=== PATIENT | male | born 1975 | race Caucasian/White ===

== ENCOUNTER 2022-10-08 11:21 | Emergency (ER) | payer OTHER ==
[2022-10-08 11:31] VITALS: BP 174/86; PULSE 76; RESP 18; TEMP 97.8; BMI 25.1
[2022-10-08] MEDS ORDERED: KETOROLAC TROMETHAMINE 30 MG/1 ML VIAL IM ONE (12:55)
[2022-10-08] MEDS ORDERED: ACETAMINOPHEN 500 MG TABLET (FP) PO ONE (12:55)
[2022-10-08] MEDS ORDERED: KETOROLAC TROMETHAMINE 30 MG/1 ML VIAL ONE (13:00)
[2022-10-08] MEDS ORDERED: ACETAMINOPHEN 500 MG TABLET (FP) ONE (13:00)
== END 2022-10-08 13:52 | disposition home or self-care (01) ==
LOC: JERFT 11:21
PROC: 3E023GC Introduction of Other Therapeutic Substance into Muscle, Percutaneous Approach (ICD-10-PCS; principal; 2022-10-08)
DX: M25.562 Pain in left knee (principal)
CPT/HCPCS: 73560-TC-LT-FY; 99284-25

== ENCOUNTER 2023-03-25 17:24 | Emergency (ER) | payer OTHER ==
[2023-03-25 17:48] VITALS: RESP 20; TEMP 98.1; BMI 25.1
[2023-03-25] MEDS ORDERED: KETOROLAC TROMETHAMINE 30 MG/1 ML VIAL IM ONE (19:40)
[2023-03-25] MEDS ORDERED: LIDOCAINE 4% PATCH TP ONE (19:40)
[2023-03-25] MEDS ORDERED: diazePAM 5 MG TABLET PO ONE (19:40)
[2023-03-25] MEDS ORDERED: LIDOCAINE 5% TOPICAL PATCH ONE (19:44)
[2023-03-25] MEDS ORDERED: KETOROLAC TROMETHAMINE 30 MG/1 ML VIAL ONE (19:45)
[2023-03-25] MEDS ORDERED: diazePAM 5 MG TABLET ONE (19:45)
[2023-03-25] MEDS ORDERED: LIDOCAINE PATCH REMOVAL MC SCH (22:00)
[2023-03-25 22:07] VITALS: BP 144/83; PULSE 64
== END 2023-03-25 22:11 | disposition home or self-care (01) ==
LOC: JER 17:24
PROC: 3E0233Z Introduction of Anti-inflammatory into Muscle, Percutaneous Approach (ICD-10-PCS; principal; 2023-03-25)
DX: M54.50 Low back pain, unspecified (principal); M54.6 Pain in thoracic spine; M25.562 Pain in left knee; M25.522 Pain in left elbow; R07.9 Chest pain, unspecified; M25.551 Pain in right hip; M25.552 Pain in left hip; S52.122A Displaced fracture of head of left radius, initial encounter for closed fracture; V49.40XA Driver injured in collision with unspecified motor vehicles in traffic accident, initial encounter; Y93.I9 Activity, other involving external motion; Y92.410 Unspecified street and highway as the place of occurrence of the external cause
CPT/HCPCS: 72100-TC-FY; 72125-TC; 72128-TC; 73070-TC-LT-FY; 73562-TC-LT-FY; 99284-25

== ENCOUNTER 2025-03-01 06:10 | Inpatient (IN) | payer OTHER ==
[2025-03-01] MEDS ORDERED: LIDOCAINE 1%/EPI 1:100000 (20 ML MULTI DOSE VIAL) ONE (09:37)
[2025-03-01] MEDS ORDERED: THROMBIN (BOVINE) 20,000 UNIT VIAL TP ONE (09:47)
[2025-03-01] MEDS ORDERED: VANCOMYCIN 1,000 MG VIAL (RESTRICTED TO ID ONLY) ONE ×2 (09:47→11:18)
[2025-03-01] MEDS ORDERED: GENTAMICIN SO4 80 MG/2 ML VIAL ONE (09:47)
[2025-03-01] MEDS ORDERED: BUPIVACAINE HCL/PF 0.5% (5MG/ML) 10 ML VIAL ONE (09:48)
[2025-03-01] MEDS ORDERED: BUPIVACAINE LIPOSOME/PF (EXPAREL) 266 MG/20 ML VIAL ONE (09:48)
[2025-03-01] MEDS ORDERED: MIDAZOLAM HCL 2 MG/2 ML SINGLE DOSE VIAL ONE (10:11)
[2025-03-01] MEDS ORDERED: ROCURONIUM BROMIDE 50 MG/5 ML SYRINGE ONE ×2 (10:11→11:24)
[2025-03-01] MEDS ORDERED: BUPIVACAINE HCL/PF 0.25% (2.5MG/ML) 10 ML VIAL ONE (10:18)
[2025-03-01] MEDS ORDERED: PROPOFOL 20 ML ONE (10:53)
[2025-03-01] MEDS ORDERED: diphenhydrAMINE HCL 25 MG CAPSULE (FP) PO PRN (10:57)
[2025-03-01] MEDS: VANCOMYCIN 1,000 MG VIAL (RESTRICTED TO ID ONLY) IVPB ONE (11:17)
[2025-03-01] MEDS ORDERED: TRANEXAMIC ACID 1000 MG/10 ML VIAL ONE (11:18)
[2025-03-01] MEDS ORDERED: DEXAMETHASONE SOD PHOSPHATE 4 MG/1 ML VIAL ONE (11:26)
[2025-03-01] MEDS: LIDOCAINE 1%/EPI 1:100000 (20 ML MULTI DOSE VIAL) IJ ONE (11:26)
[2025-03-01] MEDS: GENTAMICIN SO4 80 MG/2 ML VIAL IVPB ONE (11:53)
[2025-03-01] MEDS: HYDROGEN PEROXIDE 473 ML PO ONE (11:54)
[2025-03-01] MEDS: BUPIVACAINE LIPOSOME/PF (EXPAREL) 266 MG/20 ML VIAL NR ONE (12:06)
[2025-03-01] MEDS: BUPIVACAINE HCL/PF 0.5% (5MG/ML) 10 ML VIAL IJ ONE (12:06)
[2025-03-01] MEDS ORDERED: LIDOCAINE HCL/PF 2% SDV 5ML VIAL ONE (12:50)
[2025-03-01] MEDS ORDERED: SUGAMMADEX SODIUM 200 MG/2 ML VIAL ONE (13:00)
[2025-03-01] MEDS ORDERED: ONDANSETRON 4 MG/2 ML VIAL IVPUSH PRN (13:24)
[2025-03-01] MEDS: LACTATED RINGERS SOLUTION 1,000 ML/1,000 ML INFUS.BAG IV SCH (13:54)
[2025-03-01] MEDS ORDERED: HEPARIN NA (PORCINE) 5,000 UNITS/ML 1ML VIAL ONE (14:54)
[2025-03-01] MEDS: LACTATED RINGERS SOLUTION 1,000 ML IV SCH (14:56)
[2025-03-01] MEDS: HEPARIN NA (PORCINE) 5,000 UNITS/ML 1ML VIAL SQ SCH (14:56)
[2025-03-01] MEDS: DOCUSATE SODIUM 100 MG CAPSULE (FP) PO SCH (15:43)
[2025-03-01] MEDS: CEFAZOLIN 1 GM in DEXTROSE 5%-WATER - 50 ML IVPB SCH (17:01)
[2025-03-01] MEDS ORDERED: CEFAZOLIN 1 GM in DEXTROSE 5%-WATER - 50 ML IVPB SCH (18:00)
[2025-03-02 07:04] LABS: MCHC 33.5 g/dl (32.3-36.5); MEAN CELL VOLUME 96.2 fl (79.0-92.2); MEAN PLT VOLUME 10.1 fl (9.4-12.4); RDW 13.9 % (12.2-16.1)
[2025-03-02 07:53] LABS: GLUCOSE,RANDOM 101.0 mg/dL (74-106)
[2025-03-02 07:54] LABS: CO2 27.0 mmol/L (21-32)
[2025-03-02 07:58] LABS: CREATININE 0.75 mg/dL (0.55-1.3)
[2025-03-02] MEDS: FERROUS SO4 325 MG TABLET (FP) PO SCH (09:02)
[2025-03-02] MEDS: FOLIC ACID 1 MG TABLET (FP) PO SCH (09:02)
[2025-03-02] MEDS: ONDANSETRON 4 MG/2 ML VIAL IVPUSH PRN (14:32)
[2025-03-02] MEDS: HYDROmorphone *PCA* 10MG/50ML DISP.SYRIN PCA SCH (19:56)
[2025-03-03 07:54] LABS: MCHC 32.9 g/dl (32.3-36.5); MEAN CELL VOLUME 97.3 fl (79.0-92.2); MEAN PLT VOLUME 10.7 fl (9.4-12.4); RDW 14.2 % (12.2-16.1)
[2025-03-03 08:10] LABS: GLUCOSE,RANDOM 83.0 mg/dL (74-106)
[2025-03-03 08:11] LABS: TOT PROT 6.1 g/dl (6.4-8.2)
[2025-03-03 08:13] LABS: ALK PHOS 106.0 U/L (40-150)
[2025-03-03 08:16] LABS: CREATININE 0.95 mg/dL (0.55-1.3); SGOT/AST 24.0 U/L (5-34); SGPT/ALT 16.0 U/L (0-55)
[2025-03-03 08:42] LABS: CO2 30.0 mmol/L (21-32)
[2025-03-03] MEDS: NIFEdipine E.R 60 MG TABLET PO SCH (10:57)
[2025-03-04 06:57] LABS: ABSOLUTE IMMATURE GRANULOCYTES 0.04 x10^3/uL (0.0-0.031); BASOPHILS # 0.05 x10^3/uL (0.01-0.08); EOSINOPHIL % 1.8 % (0.8-7.0); EOSINOPHILS # 0.21 x10^3/uL (0.04-0.54); MCHC 33.7 g/dl (32.3-36.5); MEAN CELL VOLUME 96.0 fl (79.0-92.2); MEAN PLT VOLUME 10.6 fl (9.4-12.4); MONOCYTE # 0.95 x10^3/uL (0.30-0.82); MONOCYTE % 8.2 % (5.3-12.2); RDW 13.9 % (12.2-16.1)
[2025-03-04] MEDS ORDERED: ACETAMINOPHEN INJECTION 100 ML ONE (10:22)
[2025-03-04] MEDS ORDERED: ACETAMINOPHEN 1000 MG/100 ML BAG IVPB PRN (21:15)
[2025-03-04] MEDS: MUPIROCIN 2% TOPICAL OINTMENT FOR DECOLONIZATION NS SCH (21:22)
[2025-03-04] MEDS: SENNOSIDES 8.8 MG/5 ML SYRUP PO SCH (21:22)
[2025-03-04] MEDS: CHLORHEXIDINE GLUCONATE 4% CLEANSER FOR DECOLONIZATION TP SCH (21:22)
[2025-03-05 06:53] LABS: ABSOLUTE IMMATURE GRANULOCYTES 0.02 x10^3/uL (0.0-0.031); BASOPHILS # 0.06 x10^3/uL (0.01-0.08); EOSINOPHIL % 3.5 % (0.8-7.0); EOSINOPHILS # 0.36 x10^3/uL (0.04-0.54); MCHC 33.6 g/dl (32.3-36.5); MEAN CELL VOLUME 95.4 fl (79.0-92.2); MEAN PLT VOLUME 10.8 fl (9.4-12.4); MONOCYTE # 0.64 x10^3/uL (0.30-0.82); MONOCYTE % 6.2 % (5.3-12.2); RDW 13.7 % (12.2-16.1)
[2025-03-05 07:12] LABS: GLUCOSE,RANDOM 88.0 mg/dL (74-106)
[2025-03-05 07:13] LABS: TOT PROT 6.2 g/dl (6.4-8.2)
[2025-03-05 07:14] LABS: CO2 26.0 mmol/L (21-32)
[2025-03-05 07:15] LABS: ALK PHOS 107.0 U/L (40-150)
[2025-03-05 07:18] LABS: CREATININE 0.76 mg/dL (0.55-1.3); SGOT/AST 27.0 U/L (5-34); SGPT/ALT 18.0 U/L (0-55)
[2025-03-05] MEDS: ACETAMINOPHEN 1000 MG/100 ML BAG IVPB PRN ×2 (12:00→19:53)
[2025-03-05] MEDS: POLYETHYLENE GLYCOL (HEALTHYLAX) 3350 17 GM PACKET PO PRN (14:14)
[2025-03-05] MEDS ORDERED: LACTULOSE 20 GM/30 ML UDC (FOR ORAL USE ONLY) PO PRN (15:31)
[2025-03-05] MEDS ORDERED: diphenhydrAMINE HCL 25 MG CAPSULE (FP) PO PRN (20:13)
[2025-03-05] MEDS: HYDROmorphone *PCA* 10MG/50ML DISP.SYRIN PCA SCH (21:07)
[2025-03-05] MEDS: HEPARIN NA (PORCINE) 5,000 UNITS/ML 1ML VIAL SQ SCH (21:10)
[2025-03-05] MEDS: POLYETHYLENE GLYCOL (HEALTHYLAX) 3350 17 GM PACKET PO SCH (21:11)
[2025-03-05] MEDS: SENNOSIDES 8.8 MG/5 ML SYRUP PO SCH (21:11)
[2025-03-05] MEDS: DOCUSATE SODIUM 100 MG CAPSULE (FP) PO SCH (21:11)
[2025-03-06] MEDS: CEFAZOLIN 1 GM in DEXTROSE 5%-WATER - 50 ML IVPB SCH (01:45)
[2025-03-06 07:08] LABS: ABSOLUTE IMMATURE GRANULOCYTES 0.02 x10^3/uL (0.0-0.031); BASOPHILS # 0.06 x10^3/uL (0.01-0.08); EOSINOPHIL % 3.2 % (0.8-7.0); EOSINOPHILS # 0.30 x10^3/uL (0.04-0.54); MCHC 33.7 g/dl (32.3-36.5); MEAN CELL VOLUME 94.7 fl (79.0-92.2); MEAN PLT VOLUME 11.1 fl (9.4-12.4); MONOCYTE # 0.57 x10^3/uL (0.30-0.82); MONOCYTE % 6.1 % (5.3-12.2); RDW 13.6 % (12.2-16.1)
[2025-03-06 07:21] LABS: GLUCOSE,RANDOM 95.0 mg/dL (74-106); TOT PROT 6.4 g/dl (6.4-8.2)
[2025-03-06 07:22] LABS: CO2 24.0 mmol/L (21-32)
[2025-03-06 07:24] LABS: ALK PHOS 114.0 U/L (40-150)
[2025-03-06 07:27] LABS: CREATININE 0.64 mg/dL (0.55-1.3); SGOT/AST 43.0 U/L (5-34); SGPT/ALT 34.0 U/L (0-55)
[2025-03-06] MEDS: NIFEdipine E.R 60 MG TABLET PO SCH (09:14)
[2025-03-06] MEDS: FOLIC ACID 1 MG TABLET (FP) PO SCH (09:14)
[2025-03-06] MEDS: FERROUS SO4 325 MG TABLET (FP) PO SCH (09:15)
[2025-03-06] MEDS: ONDANSETRON 4 MG/2 ML VIAL IVPUSH PRN (09:28)
[2025-03-06] MEDS: METHYLNALTREXONE BROMIDE 8 MG/0.4 ML SYRINGE SQ ONE (10:13)
[2025-03-06] MEDS: CAFFEINE CITRATE 60 MG/3 ML VIAL (ORAL USE ONLY) PO ONE (13:56)
[2025-03-06] MEDS: MAGNESIUM CITRATE 300 ML BOTTLE PO ONE (17:45)
[2025-03-06 23:18] LABS: MCHC 34.4 g/dl (32.3-36.5); MEAN CELL VOLUME 93.6 fl (79.0-92.2); MEAN PLT VOLUME 10.2 fl (9.4-12.4); RDW 13.5 % (12.2-16.1)
[2025-03-07] MEDS: ACETAMINOPHEN/CAFFEINE/BUTALBITAL 1 TAB PO PRN (00:54)
[2025-03-07 06:58] LABS: BASOPHILS # 0.07 x10^3/uL (0.01-0.08); MEAN CELL VOLUME 93.5 fl (79.0-92.2)
[2025-03-07 07:09] LABS: ABSOLUTE IMMATURE GRANULOCYTES 0.04 x10^3/uL (0.0-0.031); EOSINOPHIL % 4.2 % (0.8-7.0); EOSINOPHILS # 0.42 x10^3/uL (0.04-0.54); MCHC 34.3 g/dl (32.3-36.5); MEAN PLT VOLUME 10.4 fl (9.4-12.4); MONOCYTE # 0.60 x10^3/uL (0.30-0.82); MONOCYTE % 6.0 % (5.3-12.2); RDW 13.7 % (12.2-16.1)
[2025-03-07 07:21] LABS: TOT PROT 6.1 g/dl (6.4-8.2)
[2025-03-07 07:22] LABS: CO2 22.0 mmol/L (21-32)
[2025-03-07 07:24] LABS: ALK PHOS 123.0 U/L (40-150)
[2025-03-07 07:26] LABS: SGOT/AST 63.0 U/L (5-34); SGPT/ALT 53.0 U/L (0-55)
[2025-03-07 07:27] LABS: CREATININE 0.73 mg/dL (0.55-1.3)
[2025-03-07 07:29] LABS: GLUCOSE,RANDOM 89.0 mg/dL (74-106)
[2025-03-07] MEDS ORDERED: ACETAMINOPHEN 325 MG TABLET (FP) PO PRN (11:29)
[2025-03-07 16:00] VITALS: BMI 22.6
[2025-03-07] MEDS: morphine CARPU-JECT 2 MG/1 ML DISP.SYRIN IVPUSH PRN (17:48)
[2025-03-08 06:38] LABS: ABSOLUTE IMMATURE GRANULOCYTES 0.04 x10^3/uL (0.0-0.031); BASOPHILS # 0.08 x10^3/uL (0.01-0.08); EOSINOPHIL % 4.7 % (0.8-7.0); EOSINOPHILS # 0.49 x10^3/uL (0.04-0.54); MCHC 33.8 g/dl (32.3-36.5); MEAN CELL VOLUME 94.0 fl (79.0-92.2); MEAN PLT VOLUME 10.2 fl (9.4-12.4); MONOCYTE # 0.86 x10^3/uL (0.30-0.82); MONOCYTE % 8.3 % (5.3-12.2); RDW 13.8 % (12.2-16.1)
[2025-03-08 07:06] LABS: TOT PROT 6.0 g/dl (6.4-8.2)
[2025-03-08 07:09] LABS: ALK PHOS 121.0 U/L (40-150)
[2025-03-08 07:11] LABS: SGPT/ALT 53.0 U/L (0-55)
[2025-03-08 07:12] LABS: CREATININE 0.77 mg/dL (0.55-1.3); SGOT/AST 52.0 U/L (5-34)
[2025-03-08 07:26] LABS: CO2 20.0 mmol/L (21-32); GLUCOSE,RANDOM 103.0 mg/dL (74-106)
[2025-03-08] MEDS: METHYLNALTREXONE BROMIDE 8 MG/0.4 ML SYRINGE SQ ONE (10:32)
[2025-03-08] MEDS ORDERED: morphine CARPU-JECT 2 MG/1 ML DISP.SYRIN IVPUSH PRN (12:26)
[2025-03-08] MEDS ORDERED: ONDANSETRON 4 MG/2 ML VIAL IVPUSH PRN (12:26)
[2025-03-08] MEDS ORDERED: diphenhydrAMINE HCL 25 MG CAPSULE (FP) PO PRN (12:26)
[2025-03-08] MEDS: DOCUSATE SODIUM 100 MG CAPSULE (FP) PO SCH (13:26)
[2025-03-08] MEDS: HEPARIN NA (PORCINE) 5,000 UNITS/ML 1ML VIAL SQ SCH (13:26)
[2025-03-08] MEDS: POLYETHYLENE GLYCOL (HEALTHYLAX) 3350 17 GM PACKET PO SCH (13:26)
[2025-03-08] MEDS ORDERED: POLYETHYLENE GLYCOL (HEALTHYLAX) 3350 17 GM PACKET PO SCH (14:00)
[2025-03-08] MEDS: CEFAZOLIN 1 GM in DEXTROSE 5%-WATER - 50 ML IVPB SCH (17:35)
[2025-03-08 21:44] VITALS: RESP 18
[2025-03-08] MEDS: SENNOSIDES 8.8 MG/5 ML SYRUP PO SCH (21:52)
[2025-03-08] MEDS ORDERED: CHLORHEXIDINE GLUCONATE 4% CLEANSER FOR DECOLONIZATION TP SCH (22:00)
[2025-03-08] MEDS ORDERED: MUPIROCIN 2% TOPICAL OINTMENT FOR DECOLONIZATION NS SCH (22:00)
[2025-03-08] MEDS: ACETAMINOPHEN 325 MG TABLET (FP) PO PRN (22:09)
[2025-03-09] MEDS: FERROUS SO4 325 MG TABLET (FP) PO SCH (10:36)
[2025-03-09] MEDS: NIFEdipine E.R 60 MG TABLET PO SCH (10:36)
[2025-03-09] MEDS: FOLIC ACID 1 MG TABLET (FP) PO SCH (10:36)
[2025-03-09 14:10] VITALS: BP 131/86; PULSE 54; TEMP 98.2
== END 2025-03-09 18:15 | disposition home or self-care (01) | DRG 304 ==
LOC: J2C 06:10 → J2W 15:39 → JICU 03-04 13:49 → J8W 03-08 12:24
PROVIDERS: ADMIT Family Medicine; ATTEND Family Medicine
PROC: 0SG0071 Fusion of Lumbar Vertebral Joint with Autologous Tissue Substitute, Posterior Approach, Posterior Column, Open Approach (ICD-10-PCS; 2025-03-01)
PROC: 0SG00K1 Fusion of Lumbar Vertebral Joint with Nonautologous Tissue Substitute, Posterior Approach, Posterior Column, Open Approach (ICD-10-PCS; 2025-03-01)
PROC: 0SG00AJ Fusion of Lumbar Vertebral Joint with Interbody Fusion Device, Posterior Approach, Anterior Column, Open Approach (ICD-10-PCS; principal; 2025-03-01 11:00)
DX: M47.816 Spondylosis without myelopathy or radiculopathy, lumbar region (principal); I10 Essential (primary) hypertension; D72.829 Elevated white blood cell count, unspecified; R06.02 Shortness of breath; R51.9 Headache, unspecified; F17.200 Nicotine dependence, unspecified, uncomplicated; K59.00 Constipation, unspecified; R11.2 Nausea with vomiting, unspecified; G97.82 Other postprocedural complications and disorders of nervous system
CPT/HCPCS: 36415; 70450-TC; 71045-TC-FY; 72131-TC; 74019-TC-FY; 76000-TC-FY; 80048; 80053; 83735; 84100; 85025; 85027; 86850; 86900; 86901; 90675; 93971-TC-RT; 94010; 94760; 97116-GP; 97161-GP; C1713; C1889; J0666